=== PATIENT | male | born 1955 | race Caucasian/White ===

== ENCOUNTER 2016-04-16 15:06 | Outpatient (CLI) | payer MEDICARE, OTHER ==
[2014-12-23 13:47] VITALS: BP 167/93
[2016-04-16 15:30] LABS: BASOPHILS % 0.4 (0.0-1.5); EOSINOPHILS % 1.6 % (0.0-6.8); LYMPHOCYTES # 2.9 # k/uL (0.6-4.0); MEAN CORPUSCULAR HEMOGLOBIN 31.6 pg (28.0-34.0); MONOCYTES # 0.7 # k/uL (0.0-0.9); MONOCYTES % 8.1 % (0.0-11.0); NEUTROPHILS # 4.6 # k/uL (1.4-7.7)
[2016-04-16 15:48] LABS: eGFR (African) > 60; eGFR (Non-African) > 60
[2016-04-16 22:23] LABS: VALPROIC ACID LEVEL 101.4 ug/mL (50.0-100.0)
[2016-04-16 22:41] LABS: LEVETIRACETAM(KEPPRA) LEVEL 52.7 ug/mL (6.0-46.0)
== END 2016-04-16 15:07 ==
LOC: LAB 15:06
PROVIDERS: ATTEND Family Medicine
DX: Z51.81 Encounter for therapeutic drug level monitoring (principal); E03.9 Hypothyroidism, unspecified; Z79.899 Other long term (current) drug therapy
CPT/HCPCS: 36415; 80053; 80164; 80177; 84443; 85025

== ENCOUNTER 2017-03-11 16:27 | Outpatient (CLI) | payer MEDICARE, OTHER ==
[2014-12-23 13:47] VITALS: BP 167/93
[2017-03-11 16:53] LABS: BASOPHILS % 0.7 (0.0-1.5); EOSINOPHILS % 2.2 % (0.0-6.8); MEAN CORPUSCULAR HEMOGLOBIN 28.6 pg (28.0-34.0); MONOCYTES % 9.1 % (0.0-11.0); NEUTROPHILS # 4.7 # k/uL (1.4-7.7)
== END 2017-03-11 16:30 ==
LOC: LAB 16:27
PROVIDERS: ATTEND Family Medicine
DX: D50.0 Iron deficiency anemia secondary to blood loss (chronic) (principal)
CPT/HCPCS: 36415; 85025

== ENCOUNTER 2017-04-22 10:55 | Outpatient (CLI) | payer MEDICARE, OTHER ==
[2014-12-23 13:47] VITALS: BP 167/93
[2017-04-22 11:31] LABS: BASOPHILS % 0.4 (0.0-1.5); EOSINOPHILS % 1.4 % (0.0-6.8); MEAN CORPUSCULAR HEMOGLOBIN 26.2 pg (28.0-34.0); MEAN CORPUSCULAR VOLUME 86.1 fl (80.0-100.0); MONOCYTES % 7.6 % (0.0-11.0); NEUTROPHILS # 5.9 # k/uL (1.4-7.7)
[2017-04-22 12:06] LABS: eGFR (African) > 60; eGFR (Non-African) > 60
[2017-04-22 16:40] LABS: VALPROIC ACID LEVEL 73.1 ug/mL (50.0-100.0)
== END 2017-04-22 10:56 ==
LOC: LAB 10:55
PROVIDERS: ATTEND Family Medicine
DX: D50.0 Iron deficiency anemia secondary to blood loss (chronic) (principal); E03.9 Hypothyroidism, unspecified; Z51.81 Encounter for therapeutic drug level monitoring
CPT/HCPCS: 36415; 80053; 80164; 80177; 84443; 85025